=== PATIENT | female | born 1995 | race Caucasian/White ===

== ENCOUNTER 2020-12-07 11:56 | Emergency (ER) | payer BC, SELFPAY | END 2020-12-07 11:58 | disposition left against medical advice (07) | LOC: EXPBETH 12:02 | PROVIDERS: Emergency Provider Registered Nurse; PCP Physician Assistant | DX: Z53.21 Procedure and treatment not carried out due to patient leaving prior to being seen by health care provider (principal) | CPT/HCPCS: 99199 ==

== ENCOUNTER 2022-07-25 11:41 | Outpatient (CLI) | payer BC, SELFPAY ==
--- NOTE | ~2022-07-25 | MMUS_ITS ---
EXAMINATION: MM diagnostic rosemarie BI w ammon, US breast BI complete HISTORY: Mastodynia: right lateral breast soreness. Positive BRAC 1 gene.] TECHNIQUE: Full field and spot ML, MLO and CC views 3-D tomosynthesis images of both breasts were per formed and synthetic 2-D images were generated. CAD analysis was submitted and interpreted. High reso lution complete bilateral breast ultrasound examination including all 4 quadrants and subareolar area s was performed, with Second Look left breast ultrasound imaging and additional radiologist imaging a t left breast. COMPARISON: None BREAST PARENCHYMAL COMPOSITION: There are scattered areas of fibroglandular density. FINDINGS: MAMMOGRAPHIC FINDINGS: A circumscribed 7 mm nodular density is noted in the posterior central mid to lower left breast sligh tly lateral to the mid sagittal plane (MLO full field Tomosynthesis image 39/85; CC full field Tomosy nthesis image 22/). First and second technologist imaging and additional imaging by radiologist Dr. Malik was performed with particular attention to this area on the second look and radiologist examina tion. Otherwise no suspicious mass, architectural distortion, malignant calcification, skin thickening or r etraction of either breast is detected. ULTRASOUND: No suspicious mass or shadowing, cyst or other significant sonographic abnormality of either breast i s detected. 2nd percentile imaging of the technologist and additional ultrasound imaging by Dr. Malik did not reve al any evidence of abnormality at the area of mammographic concern. IMPRESSION: 1. Asymmetric 7 mm nodular mammographic opacity in posterior mid to lower slightly outer left breast 2. Given the positive BRAC 1 gene and the left breast possible mammographic mass, without sonographic correlate, MR breast imaging should be considered. Breast oncologic specialist consultation is sherron mmended. BI-RADS Category 0: Incomplete: Needs additional imaging evaluation. Reviewed, dictated and finalized at location A. [facility] IMPRESSION: 1. Asymmetric 7 mm nodular mammographic opacity in posterior mid to lower sligh tly outer left breast 2. Given the positive BRAC 1 gene and the left breast possible mammographic mas s, without sonographic correlate, MR breast imaging should be considered. [facility] oncologic specialist consultation is recommended. BI-RADS Category 0: Incomplete: Needs additional imaging evaluation.
== END 2022-07-25 11:42 ==
PROVIDERS: PCP Obstetrics & Gynecology; Visit Provider Obstetrics & Gynecology
DX: N64.4 Mastodynia (principal); Z15.01 Genetic susceptibility to malignant neoplasm of breast; R92.8 Other abnormal and inconclusive findings on diagnostic imaging of breast
CPT/HCPCS: 76641; 77062; 77066; G0279

== ENCOUNTER 2023-08-30 10:34 | Emergency (ER) | payer OTHER, SELFPAY ==
[2023-08-30 10:52] VITALS: BP 139/79; PULSE 104; RESP 16; TEMP 36.6; O2SAT 100
--- NOTE | 2023-08-30 11:40 | ED.URI ---
HPI - URI/Sore Throat General Chief Complaint: Upper Respiratory Infection Stated Complaint: Chest Pain/Cough/Shortness of Breath Source: patient Mode of arrival: ambulatory Limitations: no limitations History of Present Illness HPI Narrative: 28 y/o female presented for c/o cough and chest congestion for 3 days. Reports painful productive cough of green sputum, pain radiates around ribs to back. Started with n/v/d yesterday. States sometimes the forceful cough causes vomiting. Denies abdominal pain, sob, wheezing or lethargy. Endorses exposure to flu and covid at work. Took Nyquil last night. Related Data Home Medications Medication Instructions Recorded Confirmed escitalopram oxalate 20 mg tablet mg 08/30/23 norethindrone 0.5 mg-ethinyl tablet 08/30/23 estradiol 35 mcg tablet (Nortrel) Allergies Allergy/AdvReac Type Severity Reaction Status Date / Time No Known Allergies Allergy Unverified 08/30/23 11:08 Review of Systems Review of Systems: CONSTITUTIONAL: Reports body aches, fever, chills, or sweats. EYES: Denies visual changes, redness, or discharge. ENT: Denies rhinorrhea, congestion, sore throat, or otalgia. CARDIOVASCULAR: Denies chest pain, palpitations, or edema. RESPIRATORY: Reports cough, denies sob, wheezing. GASTROINTESTINAL: Denies abdominal pain, nausea, vomiting, or diarrhea. SKIN: Denies rash, itching, or wounds. MUSCULOSKELETAL: Denies back pain, joint pain NEUROLOGIC: Denies headache All systems reviewed & are unremarkable except as noted in HPI and below PMFSH Comments At time of signature, I have reviewed and agree with nursing past medical, surgical, social and family history unless otherwise noted. Please see nursing chart for further information. There is no relevant family history pertinent to the presenting complaint Exam Narrative: GENERAL: Well-appearing, in no acute distress. EYES: EOMI. No redness or drainage. Conjunctivae normal. ENT: Mucous membranes pink and moist. No rhinorrhea. TMs normal bilaterally. Throat normal. Uvula midline. NECK: Normal AROM. Supple. CHEST: No respiratory distress. lungs clear to all fox. HEART: Regular rate and rhythm. No murmur appreciated. ABDOMEN: Soft, nontender, nondistended, normal active bowel sounds. SKIN: Warm, dry, no rash. Capillary refill normal. Normal skin turgor. NEURO: Alert and oriented x3. Gait steady. PSYCH: Normal affect. Course Course Emergency Course: Patient is aware of diagnosis, understands and agrees to treatment plan. Anticipatory guidance given. Patient agrees to follow-up as directed and is aware of reasons to seek care at the emergency department. Portions of this record may have been created with voice recognition software Level of Care: Express Care Visit Vital Signs Vital signs: Vital Signs Temperature 98 F 08/30/23 10:52 Pulse Rate 104 H 08/30/23 10:52 Respiratory Rate 16 08/30/23 10:52 Blood Pressure 139/79 08/30/23 10:52 Pulse Oximetry 100 08/30/23 10:52 Oxygen Delivery Room Air 08/30/23 10:52 Temperature 98 F 08/30/23 10:52 Pulse Rate 104 H 08/30/23 10:52 Respiratory Rate 16 08/30/23 10:52 Blood Pressure 139/79 08/30/23 10:52 Pulse Oximetry 100 08/30/23 10:52 Oxygen Delivery Room Air 08/30/23 10:52 MDM - URI/Sore Throat MDM Narrative Medical decision making narrative: negative flu and COVID results reviewed with patient. Discussed physical exam findings Consistent with bronchitis. Advised supportive measures and signs/symptoms to go to the ER. Pt is appropriate for outpt treatment and f/u. Differential Diagnosis Differential diagnosis: Likely upper respiratory infection, viral infection, bronchitis and influenza Discharge Plan Discharge Clinical Impression: Bronchitis Patient Disposition: Home, Self-Care Condition: Stable Instructions: Antibiotic Form, Acute Bronchitis (ED) Additional Instructions:
== END 2023-08-30 11:52 | disposition home or self-care (01) ==
PROVIDERS: Emergency Provider Nurse Practitioner Family; PCP Family Medicine
DX: J40 Bronchitis, not specified as acute or chronic (principal); Z20.822 Contact with and (suspected) exposure to COVID-19; F41.9 Anxiety disorder, unspecified
CPT/HCPCS: 87426; 87804; 99213; G0463